=== PATIENT | male | born 1965 ===

== ENCOUNTER 2018-05-05 13:22 | Inpatient (IN) | payer OTHER ==
[2018-05-05] MEDS ORDERED: Clindamycin 600mg/50ml NS 600 MG/50 ML BAG IVPB STA (14:56)
[2018-05-05] MEDS ORDERED: Sodium Chloride 0.9% 1,000 ML IV STA (14:56)
--- NOTE | 2018-05-05 14:58 | ED PDOC ---
Lower Extremity Pain/Injury Time Seen by Provider: 05/05/18 14:31 Chief Complaint (Nursing): Lower Extremity Problem/Injury Chief Complaint (Provider): Foot pain History Per: Patient History/Exam Limitations: no limitations Onset/Duration Of Symptoms: Days (few weeks) Current Symptoms Are (Timing): Still Present Additional Complaint(s): Pt. sent from podiatry office of Dr. Salcedo. Pt. with leg swelling and cellulitis with big toe ulcer. Advised to get IV antibiotics. Pain with pain in the foot. No numbness, tingles, weakness, calf pain, fever. Not taking an tibiotics for it. Past Medical History Reviewed: Nursing Documentation, Vital Signs Vital Signs: Last Vital Signs Temp 98.4 F 05/05/18 13:29 Pulse 83 05/05/18 13:29 Resp 16 05/05/18 13:29 BP 158/80 H 05/05/18 13:29 Pulse Ox 99 05/05/18 13:29 - Medical History PMH: Diabetes, HTN, Hypercholesterolemia - Surgical History Surgical History: No Surg Hx - Family History Family History: States: Unknown Family Hx - Allergies Allergies/Adverse Reactions: Allergies Allergy/AdvReac Type Severity Reaction Status Date / Time No Known Allergies Allergy Verified 05/05/18 13:29 Review of Systems ROS Statement: Except As Marked, All Systems Reviewed And Found Negative Musculoskeletal: Positive for: Foot Pain Skin: Positive for: Lesions Physical Exam - Reviewed Nursing Documentation Reviewed: Yes Vital Signs Reviewed: Yes - Physical Exam Appears: Positive for: Non-toxic, No Acute Distress Head Exam: Positive for: ATRAUMATIC, NORMAL INSPECTION, NORMOCEPHALIC Skin: Positive for: Normal Color, Warm, DRY Neck: Positive for: Normal, Painless ROM Cardiovascular/Chest: Positive for: Regular Rate, Rhythm Respiratory: Positive for: CNT, Normal Breath Sounds Pulses-Dorsalis Pedis (L): 2+ Pulses-Dorsalis Pedis (R): 2+ Back: Positive for: Normal Inspection. Negative for: L CVA Tenderness, R CVA Tenderness Extremity: Positive for: Normal ROM, Tenderness (mild left foot with mild swelling and trace erythema; left big toe with ulcer). Negative for: Calf Tenderness Neurologic/Psych: Positive for: Alert, Oriented - ECG O2 Sat by Pulse Oximetry: 99 Pulse Ox Interpretation: Normal - Progress ED Course And Treament: 1532: Stable. Spoke with Dr. Matias. Will admit. Podiatry saw pt. and will admit. Branden jackson and karolina. Disposition - Clinical Impression Clinical Impression: Cellulitis, Osteomyelitis - Patient ED Disposition Is Patient to be Admitted: Yes Counseled Patient/Family Regarding: Diagnosis - Disposition Disposition Time: 15:36 Condition: FAIR - Pt Status Changed To: Hospital Disposition Of: Inpatient - Admit Certification Admit to Inpatient:: After my assessment, the patient will require hospitalization for at least two midnights. This is because of the severity of symptoms shown, intensity of services needed, and/or the medical risk in this p atient being treated as an outpatient. - POA Present On Arrival: Pressure Ulcer
[2018-05-05] MEDS ORDERED: Piperacillin/Tazobact 3.375 GM in Sodium Chloride 0.9% 100 ML IVPB STA (15:33)
[2018-05-05] MEDS ORDERED: Povidone Iodine Oint 10% Foilpak UD ONE (15:33)
[2018-05-05 15:39] LABS: VENOUS BLOOD GAS PCO2 60 mmHg (40-60); VENOUS BLOOD GAS PO2 11 mm/Hg (30-55); VENOUS BLOOD PH 7.33 (7.32-7.43)
[2018-05-05 15:40] LABS: BASO % 0.3 % (0.0-2.0); EOS # 0.1 K/uL (0.0-0.7); EOS % 0.8 % (0.0-4.0); HEMOGLOBIN 15.1 g/dL (12.0-18.0); LYMPH # 1.9 K/uL (1.0-4.3); LYMPH % 14.8 % (20.0-40.0); MEAN CELL VOLUME 88.7 fl (80.0-94.0); MEAN CORPUSCULAR HEMOGLOBIN 30.3 pg (27.0-31.0); MEAN CORPUSCULAR HGB CONC 34.2 g/dL (33.0-37.0); MEAN PLATELET VOLUME 7.4 fl (7.2-11.7); MONO # 0.8 K/uL (0.0-0.8); MONO % 6.7 % (0.0-10.0); NEUT # 9.7 K/uL (1.8-7.0); NEUT % 77.4 % (50.0-75.0); NRBC % 0.1 % (0.0-0.0); RBC 4.97 Mil/uL (4.40-5.90); RED CELL DISTRIBUTION WIDTH 12.9 % (11.5-14.5); WHITE BLOOD COUNT 12.6 K/uL (4.8-10.8)
--- NOTE | 2018-05-05 15:41 | CP.PCM.CON ---
History of Present Illness - History of Present Illness History of Present Illness: Podiatry consult note for attending Dr. Salcedo: A 53 y/o male patient with PMH of DM, HTN and hypercholestremia seen and evaluated at the ED for left great toe ulceration and redness. Patient was resting comfortably in bed and in NAD. Patient states that he started to develop an ulcer in his left great toe about 3 months ago. Patient states that he is following up in with Dr. Salcedo. He states that he received a course of Abx but the ulcer didn't heel. He states that last week his ulcer stated to get painful. he states that the pain is 4-5/10. He states that his left foot and heel started to get swollen and red. Patient states that a malodorous drainage started to get out of the ulcer. Patient states that he has tingling, numbness and burning sensations in both of his feet. Patient denies any other pedal complaint at this time. Patient denies any recent F/N/V/C or SOB recently. PMH: DM, HTN and hypercholestremia PSH: Right heel surgery. Allergies: NKDA. Social Hx: Denies smoking, EtOH use or Illicit drug use. Review of Systems - Review of Systems Review of Systems: As per HPI Past Patient History - Past Social History Smoking Status: Never Smoked - CARDIAC Hx Hypercholesterolemia: Yes Hx Hypertension: Yes - ENDOCRINE/METABOLIC Hx Diabetes Mellitus Type 2: Yes - PSYCHIATRIC Hx Substance Use: No - SURGICAL HISTORY Hx Orthopedic Surgery: Yes (left foot) - ANESTHESIA Hx Anesthesia: Yes Hx Anesthesia Reactions: No Meds Allergies/Adverse Reactions: Allergies Allergy/AdvReac Type Severity Reaction Status Date / Time No Known Allergies Allergy Verified 05/05/18 13:29 - Medications Medications: Current Medications Clindamycin Phosphate (Cleocin 600mg/50ml Ns) 600 mg in 50 mls @ 50 mls/hr IVPB STAT STA; Protocol Stop: 05/05/18 15:55 Sodium Chloride (Sodium Chloride 0.9%) 1,000 mls @ 1,000 mls/hr IV .Q1H STA Stop: 05/05/18 15:55 Physical Exam - Constitutional Appears: Well, Non-toxic, No Acute Distress - Head Exam Head Exam: ATRAUMATIC, NORMOCEPHALIC - Extremities Exam Additional comments: B/L LE exam: Vascular: DP/PT 2/4 B/L, Temp gradient warm to cool from proximal to distal on the right side and warm to warmer from proximal to distal on the left side, Cap refill < 3 sec to all digits. Moderate non pitting edema extending up to the the ankle on the left side. erythema extending to the left mid-foot. Neuro: protective sensation grossly diminished B/L. Derm: An ulcer noted to plantar medial aspect of the left Hallux. It measures approximately 0.6cm x 0.6cm x 0.5 cm with positive drainage, Positive malodor; erythema extending to the left mid-foot, Positive probe to bone, Positive tacking, Positive undermining. Edges are hyperkeratotic. Positive clinical signs of infection noted. Hyperkeratotic lesion noted in the plantar aspect of the left 5th met head MSK: Mild pain to palpation of the ulceration site. Mild pain on palpating the left ankle joint. Muscle power intact 5/5 in all groups. - Neurological Exam Neurological exam: Alert, Oriented x3 - Psychiatric Exam Psychiatric exam: Normal Affect, Normal Mood Results - Vital Signs Recent Vital Signs: Last Vital Signs Temp 98.4 F 05/05/18 13:29 Pulse 83 05/05/18 13:29 Resp 16 05/05/18 13:29 BP 158/80 H 05/05/18 13:29 Pulse Ox 99 05/05/18 15:01 - Labs Result Diagrams: 05/05/18 15:14 05/05/18 15:14 Assessment & Plan - Assessment and Plan (Free Text) Assessment: 53 y/o male patient seen and evaluated in the ED for Left Hallux infected ulcer, Cellulitis and osteomyelitis Plan: Patient seen and evaluated at ED. Plan discussed in details with attending Dr. Salcedo Interpreters number [id number] used for French translation. Charts, Labs and vitals reviewed; Afebrile, WBCs 12.6 L foot X-ray reviewed; Erosions noted in the medial cortex of the distal phalanx of the left hallux. Increased soft tissue shadow at the level of the left hallux. Soft tissue defect at the left hallux consistent with ulceration. Left foot ulcer was dressed with betadine and DSD Patient will be admitted by the primary team We will continue to perform local wound care Wound culture collected and sent to the lab. Bactroban ordered for daily dressing changes Podiatry to follow up the patient while in house - Date & Time Date: 05/05/18 Time: 15:10
[2018-05-05 15:43] LABS: INR 1.1; PROTHROMBIN TIME 12.4 Seconds (9.8-13.1)
[2018-05-05] MEDS ORDERED: Vancomycin 1 g Inj ONE (15:43)
[2018-05-05 15:46] LABS: PARTIAL THROMBOPLASTIN TIME 38.3 Seconds (25.6-37.1)
[2018-05-05 15:49] LABS: ALB/GLOB RATIO 0.9 (1.0-2.1); BLOOD UREA NITROGEN 18 mg/dl (9-20); CALCIUM 9.1 mg/dL (8.4-10.2); GFR NON-AFRICAN AMERICAN > 60
[2018-05-05 16:08] LABS: ALT/SGPT 27 U/L (21-72); AST/SGOT 28 U/L (17-59)
--- NOTE | 2018-05-05 16:15 | CP.PCM.HP ---
History of Present Illness - History of Present Illness History of Present Illness: 53 yo male patient with pmh of HTN and DM sent from primary podiatry office of Dr. Salcedo due to left leg swelling and cellulitis of the big toe. Patient reported he completed an antibiotics course 10 days ago w/o improvement. Yeste rday he went to PMD and advised to come to hospital. he reports moderate pain in the foot. Podiatry already evaluated the patient and dressing is noted to be clean and dry. No numbness, tingles, weakness, calf pain, fever. Not taking antibiotics or pain meds at this time PMD: Dr Salcedo PMH: HTN, DM, HLD PSH: R foot surgery FMH: Mom with DM Meds: see below NKDA SH: denies smoking, eoth or ilicit drugs use. Present on Admission - Present on Admission Any Indicators Present on Admission: No Review of Systems - Review of Systems All systems: reviewed and no additional remarkable complaints except (HPI) Past Patient History - Past Social History Smoking Status: Never Smoked - CARDIAC Hx Hypercholesterolemia: Yes Hx Hypertension: Yes - ENDOCRINE/METABOLIC Hx Diabetes Mellitus Type 2: Yes - PSYCHIATRIC Hx Substance Use: No - SURGICAL HISTORY Hx Orthopedic Surgery: Yes (left foot) - ANESTHESIA Hx Anesthesia: Yes Hx Anesthesia Reactions: No Meds Allergies/Adverse Reactions: Allergies Allergy/AdvReac Type Severity Reaction Status Date / Time No Known Allergies Allergy Verified 05/05/18 13:29 Physical Exam - Constitutional Appears: No Acute Distress - Head Exam Head Exam: NORMAL INSPECTION - Eye Exam Eye Exam: EOMI, PERRL - Respiratory Exam Respiratory Exam: Clear to Auscultation Bilateral - Cardiovascular Exam Cardiovascular Exam: REGULAR RHYTHM, +S1, +S2. absent: Tachycardia - GI/Abdominal Exam GI & Abdominal Exam: Normal Bowel Sounds. absent: Distended, Soft, Tenderness - Extremities Exam Extremities exam: Negative for: calf tenderness, pedal edema Additional comments: Dressing clean and dry. - Neurological Exam Neurological exam: Alert, Oriented x3 - Skin Skin Exam: Dry, Warm Results - Vital Signs Recent Vital Signs: Last Vital Signs Temp 98.4 F 05/05/18 13:29 Pulse 83 05/05/18 13:29 Resp 16 05/05/18 13:29 BP 158/80 H 05/05/18 13:29 Pulse Ox 99 05/05/18 15:36 - Labs Result Diagrams: 05/06/18 05:25 05/06/18 05:25 Labs: Laboratory Results - last 24 hr 05/05/18 05/05/18 05/05/18 15:14 15:14 15:14 WBC 12.6 H RBC 4.97 Hgb 15.1 Hct 44.0 MCV 88.7 MCH 30.3 MCHC 34.2 RDW 12.9 Plt Count 329 MPV 7.4 Neut % (Auto) 77.4 H Lymph % (Auto) 14.8 L Hart % (Auto) 6.7 Eos % (Auto) 0.8 Baso % (Auto) 0.3 Neut # (Auto) 9.7 H Lymph # (Auto) 1.9 Hart # (Auto) 0.8 Eos # (Auto) 0.1 Baso # (Auto) 0.0 PT 12.4 INR 1.1 APTT 38.3 H pO2 VBG pH VBG pCO2 VBG HCO3 VBG Total CO2 VBG O2 Sat (Calc) VBG Base Excess VBG Potassium Glucose Lactate FiO2 Sodium 140 Potassium 4.6 Chloride 104 Carbon Dioxide 30 Anion Gap 11 BUN 18 Creatinine 0.8 Est GFR ( Amer) > 60 Est GFR (Non-Af Amer) > 60 Random Glucose 262 H Calcium 9.1 Total Bilirubin 0.6 AST 28 ALT 27 Alkaline Phosphatase 95 Troponin I < 0.0120 Total Protein 8.7 H Albumin 4.0 Globulin 4.7 H Albumin/Globulin Ratio 0.9 L Venous Blood Potassium 05/05/18 15:36 WBC RBC Hgb Hct MCV MCH MCHC RDW Plt Count MPV Neut % (Auto) Lymph % (Auto) Hart % (Auto) Eos % (Auto) Baso % (Auto) Neut # (Auto) Lymph # (Auto) Hart # (Auto) Eos # (Auto) Baso # (Auto) PT INR APTT pO2 11 L VBG pH 7.33 VBG pCO2 60 VBG HCO3 25.7 VBG Total CO2 33.4 H VBG O2 Sat (Calc) 13.8 L VBG Base Excess 4.0 H VBG Potassium 4.0 Glucose 236 H Lactate 1.6 FiO2 21.0 Sodium 137.0 Potassium Chloride 101.0 Carbon Dioxide Anion Gap BUN Creatinine Est GFR ( Amer) Est GFR (Non-Af Amer) Random Glucose Calcium Total Bilirubin AST ALT Alkaline Phosphatase Troponin I Total Protein Albumin Globulin Albumin/Globulin Ratio Venous Blood Potassium 4.0 Assessment & Plan - Assessment and Plan (Free Text) Assessment: 53 y/o male patient with PMH of HTN and DM admitted for Left Hallux infected ulcer, Cellulitis r/o osteomyelitis. Plan: - afebrile, no leukocytosis - L foot X-ray: Erosions noted in the medial cortex of the distal phalanx of the left hallux. Increased soft tissue shadow at the level of the left hallux. Soft tissue defect at the left hallux consistent with ulceration. - ID consulted, recommendations appreciated - wound cx pending - continue with tomer and karolina IV - Podiatry on board for wound care - rest of plan as ordered Case seen and examined with Dr Matias.
[2018-05-05] MEDS ORDERED: Oxycodone/Acetaminophen 5/325 mg Tab PO PRN (16:17)
--- NOTE | 2018-05-05 16:51 | RAD ---
Date of service: 05/05/2018 PROCEDURE: Left Foot Radiographs. HISTORY: Unspecified foot pain COMPARISON: None. FINDINGS: BONES: Normal. No fracture. JOINTS: Hammertoe deformities identified. SOFT TISSUES: Soft tissue swelling 1st digit, air identified within the soft tissues adjacent to the distal phalanx. OTHER FINDINGS: None. IMPRESSION: Soft tissue swelling 1st digit. Ulcer identified on the medial aspect at the level of the distal phalanx. No adjacent underlying radiographic evidence of osteomyelitis.
[2018-05-05] MEDS: Mupirocin 2% Cream TOP SCH (19:30)
[2018-05-05] MEDS: Influenza Vaccine (5 YR UP)/PF 60 MCG/0.5 ML SYR IM ONE ×2 (22:20→22:33)
[2018-05-05] MEDS: Insulin Regular 100 units/ml SC SCH (22:30)
[2018-05-06] MEDS: Piperacillin/Tazobact 3.375 GM in Sodium Chloride 0.9% 100 ML IVPB SCH ×5 (00:22→23:00)
[2018-05-06 06:22] LABS: BASO % 0.4 % (0.0-2.0); EOS # 0.2 K/uL (0.0-0.7); HEMOGLOBIN 13.8 g/dL (12.0-18.0); LYMPH # 2.3 K/uL (1.0-4.3); LYMPH % 21.9 % (20.0-40.0); MEAN CELL VOLUME 89.1 fl (80.0-94.0); MEAN CORPUSCULAR HEMOGLOBIN 30.5 pg (27.0-31.0); MEAN CORPUSCULAR HGB CONC 34.2 g/dL (33.0-37.0); MEAN PLATELET VOLUME 7.4 fl (7.2-11.7); MONO # 0.9 K/uL (0.0-0.8); MONO % 9.2 % (0.0-10.0); NEUT # 6.9 K/uL (1.8-7.0); NEUT % 66.5 % (50.0-75.0); NRBC % 0.1 % (0.0-0.0); RBC 4.53 Mil/uL (4.40-5.90); RED CELL DISTRIBUTION WIDTH 12.6 % (11.5-14.5); WHITE BLOOD COUNT 10.3 K/uL (4.8-10.8)
--- NOTE | 2018-05-06 07:22 | CP.PCM.PN ---
Subjective - Date & Time of Evaluation Date of Evaluation: 05/06/18 Time of Evaluation: 08:49 - Subjective Subjective: Podiatry Progress note for attending Dr. Salcedo: A 53 y/o male patient seen and evaluated at the bedside for left great toe ulceration and redness. Patient was resting comfortably in bed and in NAD. Patient states that he still has tingling, numbness and burning sensations in both of his feet. Patient denies any pain in his left hallux at the ulcer site. Patient denies any other pedal complaint at this time. Patient denies any recent F/N/V/C or SOB recently. Objective - Vital Signs/Intake and Output Vital Signs (last 24 hours): Temp Pulse Resp BP Pulse Ox 97.9 F 80 20 129/71 98 05/06/18 00:15 05/06/18 00:15 05/06/18 00:15 05/06/18 00:15 05/06/18 00:15 - Medications Medications: Current Medications Enoxaparin Sodium (Lovenox) 40 mg SC DAILY [facility]MAN; Protocol HCTZ/Losartan Potassium (Hyzaar 12.5 Mg-50 Mg) 1 tab PO DAILY [facility]MAN Vancomycin HCl 1 gm/ Sodium (Chloride) 250 mls @ 166.667 mls/hr IVPB Q12 [facility]; Protocol Last Admin: 05/05/18 22:17 Dose: 166.667 mls/hr Piperacillin Sod/Tazobactam (Sod 3.375 gm/ Sodium Chloride) 100 mls @ 100 mls/hr IVPB Q6 [facility]; Protocol Last Admin: 05/06/18 05:11 Dose: 100 mls/hr Ibuprofen (Motrin Tab) 400 mg PO Q6H PRN PRN Reason: Pain, Mild (1-3) Insulin Human Regular (Humulin R) 0 units SC ACCU-CHECK [facility]MAN; Protocol Last Admin: 05/05/18 22:30 Dose: Not Given Mupirocin (Bactroban Cream) 1 applic TOP BID [facility] Last Admin: 05/05/18 19:30 Dose: 1 applic Oxycodone/Acetaminophen (Percocet 5/325 Mg Tab) 1 tab PO Q4 PRN PRN Reason: Pain, moderate (4-7) Stop: 05/08/18 16:18 Pneumococcal Polyvalent Vaccine (Pneumovax 23 Vaccine) 0.5 ml IM .ONCE ONE Stop: 05/06/18 09:01 - Labs Labs: 05/06/18 05:25 05/05/18 15:14 PT 12.4 Seconds (9.8-13.1) 05/05/18 15:14 INR 1.1 05/05/18 15:14 APTT 38.3 Seconds (25.6-37.1) H 05/05/18 15:14 - Constitutional Appears: Well, Non-toxic, No Acute Distress - Head Exam Head Exam: ATRAUMATIC, NORMOCEPHALIC - Extremities Exam Additional comments: B/L LE exam: Vascular: DP/PT 2/4 B/L, Temp gradient warm to cool from proximal to distal on the right side and warm to warm from proximal to distal on the left side, Cap refill < 3 sec to all digits. Moderate non pitting edema extending up to the the ankle on the left side. erythema extending to the left mid-foot. Neuro: protective sensation grossly diminished B/L. Derm: An ulcer noted to plantar medial aspect of the left Hallux. It measures approximately 0.6cm x 0.6cm x 0.5 cm with positive minimal purulent drainage, Positive malodor; erythema and swelling at the left hallux, Positive probe to bone, Positive tacking, Positive undermining. Edges are hyperkeratotic. Positive clinical signs of infection noted. Hyperkeratotic lesion noted in the plantar aspect of the left 5th met head MSK: Mild pain to palpation of the ulceration site. Mild pain on palpating the left ankle joint. Muscle power intact 5/5 in all groups. - Neurological Exam Neurological Exam: Alert, Awake, Oriented x3 - Psychiatric Exam Psychiatric exam: Normal Affect, Normal Mood Assessment and Plan - Assessment and Plan (Free Text) Assessment: 53 y/o male patient seen and evaluated at the bedside for Left Hallux infected ulcer, Cellulitis and possible osteomyelitis Plan: Patient seen and evaluated at the bedside with Dr. Salcedo. Plan discussed in details with attending Dr. Salcedo Charts, Labs and vitals reviewed; Afebrile, WBCs 10.3 L foot X-ray reviewed; Erosions noted in the medial cortex of the distal phalanx of the left hallux. Increased soft tissue shadow at the level of the left hallux. Soft tissue defect at the left hallux consistent with ulceration. Ordered MRI left foot Left foot ulcer was dressed with bactroban and DSD We will continue to perform local wound care Wound culture; Pending result. Podiatry to follow up the patient while in house
[2018-05-06 07:30] LABS: ALB/GLOB RATIO 0.9 (1.0-2.1); ALBUMIN 3.4 g/dL (3.5-5.0); ALT/SGPT 27 U/L (21-72); AST/SGOT 18 U/L (17-59); BLOOD UREA NITROGEN 13 mg/dl (9-20); CALCIUM 8.5 mg/dL (8.4-10.2); GFR NON-AFRICAN AMERICAN > 60
[2018-05-06] MEDS: Insulin Regular 100 units/ml SC SCH ×5 (07:51→22:35)
[2018-05-06] MEDS ORDERED: Pneumococcal 23-Valent Vaccine IM ONE (09:00)
--- NOTE | 2018-05-06 09:06 | CP.PCM.CON ---
History of Present Illness - History of Present Illness History of Present Illness: Infectious Disease Consultation Note- Asked to see this patient at the request of for left halux infection. 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 Patient reported he completed an antibiotics course 10 days ago w/o improvement. Patient explains that it developed as a small blister over the summer and it has progressively worsened and in the past few days he was having alot of swelling and redness and pain with some malodorus discharge as well. pt. has been seen by podiatry here and has had wound cx done and is on Iv antibiotics . I'm asked to help with antibiotic management. pt. denies any injury to the region. denies having any other h/o foot infections in the past. PMD: Dr Salcedo PMH: HTN, DM, HLD FMH: Mom with DM Meds: see below NKDA SH: denies smoking, eoth or ilicit drugs use. Review of Systems - Review of Systems Review of Systems: ROS- denies any fever or chills, denies any [place], denies any cough or sob, denies any chest pain, denies any nausea or vomiting, denies any abd. pain, denies any dysurea, denies any diarrhea left hallux ulcer with pain and redness and swelling in the left great toe and s urrounding foot ( but as per pt.swelling adn erythema much less today. Past Patient History - Past Medical History & Family History Past Medical History?: Yes - Past Social History Smoking Status: Never Smoked Alcohol: None Drugs: Denies - CARDIAC Hx Hypercholesterolemia: Yes Hx Hypertension: Yes - PULMONARY Hx Respiratory Disorders: No - NEUROLOGICAL Hx Neurological Disorder: No - RENAL Hx Chronic Kidney Disease: No - ENDOCRINE/METABOLIC Hx Diabetes Mellitus Type 2: Yes - HEMATOLOGICAL/ONCOLOGICAL Hx Blood Disorders: No - MUSCULOSKELETAL/RHEUMATOLOGICAL Hx Falls: No - GASTROINTESTINAL Hx Gastrointestinal Disorders: No - PSYCHIATRIC Hx Substance Use: No - SURGICAL HISTORY Hx Orthopedic Surgery: Yes (left foot) - ANESTHESIA Hx Anesthesia: Yes Hx Anesthesia Reactions: No Meds Allergies/Adverse Reactions: Allergies Allergy/AdvReac Type Severity Reaction Status Date / Time No Known Allergies Allergy Verified 05/05/18 13:29 - Medications Medications: Current Medications Enoxaparin Sodium (Lovenox) 40 mg SC DAILY [facility]; Protocol HCTZ/Losartan Potassium (Hyzaar 12.5 Mg-50 Mg) 1 tab PO DAILY [facility] Vancomycin HCl 1 gm/ Sodium (Chloride) 250 mls @ 166.667 mls/hr IVPB Q12 [facility]; Protocol Last Admin: 05/05/18 22:17 Dose: 166.667 mls/hr Piperacillin Sod/Tazobactam (Sod 3.375 gm/ Sodium Chloride) 100 mls @ 100 mls/hr IVPB Q6 [facility]; Protocol Last Admin: 05/06/18 05:11 Dose: 100 mls/hr Ibuprofen (Motrin Tab) 400 mg PO Q6H PRN PRN Reason: Pain, Mild (1-3) Insulin Human Regular (Humulin R) 0 units SC ACCU-CHECK [facility]; Protocol Last Admin: 05/05/18 22:30 Dose: Not Given Mupirocin (Bactroban Cream) 1 applic TOP BID [facility] Last Admin: 05/05/18 19:30 Dose: 1 applic Oxycodone/Acetaminophen (Percocet 5/325 Mg Tab) 1 tab PO Q4 PRN PRN Reason: Pain, moderate (4-7) Stop: 05/08/18 16:18 Physical Exam - Constitutional Appears: No Acute Distress - Head Exam Head Exam: ATRAUMATIC - Eye Exam Eye Exam: EOMI, PERRL - ENT Exam ENT Exam: Normal Oropharynx - Neck Exam Neck exam: Positive for: Full Rom - Respiratory Exam Respiratory Exam: Clear to Auscultation Bilateral, NORMAL BREATHING PATTERN - Cardiovascular Exam Cardiovascular Exam: RRR, +S1, +S2 - GI/Abdominal Exam GI & Abdominal Exam: Normal Bowel Sounds, Soft Additional comments: NT,ND - Extremities Exam Additional comments: left plantar hallux tip with round ulcer with minimal yellow disharge with surrounding erythema minimal edema the erythema on the surrounding region is almost resolved ( as per the lines outlined by podiatry ). has FROM of the hallux - Neurological Exam Neurological exam: Alert, Oriented x3 Results - Vital Signs Recent Vital Signs: Last Vital Signs Temp 98.1 F 05/06/18 08:29 Pulse 80 05/06/18 08:29 Resp 20 05/06/18 08:29 BP 135/77 05/06/18 08:29 Pulse Ox 99 05/06/18 08:29 - Labs Result Diagrams: 05/06/18 05:25 05/06/18 05:25 Labs: Laboratory Results - last 24 hr 05/05/18 05/05/18 05/05/18 15:14 15:14 15:14 WBC 12.6 H RBC 4.97 Hgb 15.1 Hct 44.0 MCV 88.7 MCH 30.3 MCHC 34.2 RDW 12.9 Plt Count 329 MPV 7.4 Neut % (Auto) 77.4 H Lymph % (Auto) 14.8 L Bacon % (Auto) 6.7 Eos % (Auto) 0.8 Baso % (Auto) 0.3 Neut # (Auto) 9.7 H Lymph # (Auto) 1.9 Bacon # (Auto) 0.8 Eos # (Auto) 0.1 Baso # (Auto) 0.0 PT 12.4 INR 1.1 APTT 38.3 H pO2 VBG pH VBG pCO2 VBG HCO3 VBG Total CO2 VBG O2 Sat (Calc) VBG Base Excess VBG Potassium Glucose Lactate FiO2 Sodium 140 Potassium 4.6 Chloride 104 Carbon Dioxide 30 Anion Gap 11 BUN 18 Creatinine 0.8 Est GFR ( Amer) > 60 Est GFR (Non-Af Amer) > 60 POC Glucose (mg/dL) Random Glucose 262 H Calcium 9.1 Total Bilirubin 0.6 AST 28 ALT 27 Alkaline Phosphatase 95 Troponin I < 0.0120 Total Protein 8.7 H Albumin 4.0 Globulin 4.7 H Albumin/Globulin Ratio 0.9 L Venous Blood Potassium 05/05/18 05/05/18 05/05/18 15:36 16:58 21:16 WBC RBC Hgb Hct MCV MCH MCHC RDW Plt Count MPV Neut % (Auto) Lymph % (Auto) Bacon % (Auto) Eos % (Auto) Baso % (Auto) Neut # (Auto) Lymph # (Auto) Bacon # (Auto) Eos # (Auto) Baso # (Auto) PT INR APTT pO2 11 L VBG pH 7.33 VBG pCO2 60 VBG HCO3 25.7 VBG Total CO2 33.4 H VBG O2 Sat (Calc) 13.8 L VBG Base Excess 4.0 H VBG Potassium 4.0 Glucose 236 H Lactate 1.6 FiO2 21.0 Sodium 137.0 Potassium Chloride 101.0 Carbon Dioxide Anion Gap BUN Creatinine Est GFR ( Amer) Est GFR (Non-Af Amer) POC Glucose (mg/dL) 215 H 161 H Random Glucose Calcium Total Bilirubin AST ALT Alkaline Phosphatase Troponin I Total Protein Albumin Globulin Albumin/Globulin Ratio Venous Blood Potassium 4.0 05/06/18 05/06/18 05/06/18 05:25 05:25 06:30 WBC 10.3 RBC 4.53 Hgb 13.8 Hct 40.3 MCV 89.1 MCH 30.5 MCHC 34.2 RDW 12.6 Plt Count 325 MPV 7.4 Neut % (Auto) 66.5 Lymph % (Auto) 21.9 Bacon % (Auto) 9.2 Eos % (Auto) 2.0 Baso % (Auto) 0.4 Neut # (Auto) 6.9 Lymph # (Auto) 2.3 Bacon # (Auto) 0.9 H Eos # (Auto) 0.2 Baso # (Auto) 0.0 PT INR APTT pO2 VBG pH VBG pCO2 VBG HCO3 VBG Total CO2 VBG O2 Sat (Calc) VBG Base Excess VBG Potassium Glucose Lactate FiO2 Sodium 141 Potassium 4.3 Chloride 108 H Carbon Dioxide 30 Anion Gap 7 L BUN 13 Creatinine 0.8 Est GFR ( Amer) > 60 Est GFR (Non-Af Amer) > 60 POC Glucose (mg/dL) 136 H Random Glucose 132 H Calcium 8.5 Total Bilirubin 0.5 AST 18 ALT 27 Alkaline Phosphatase 78 Troponin I Total Protein 7.4 Albumin 3.4 L Globulin 3.9 Albumin/Globulin Ratio 0.9 L Venous Blood Potassium Laboratory Results - last 72 hr 05/05/18 05/05/18 05/05/18 15:14 15:14 15:14 WBC 12.6 H RBC 4.97 Hgb 15.1 Hct 44.0 MCV 88.7 MCH 30.3 MCHC 34.2 RDW 12.9 Plt Count 329 MPV 7.4 Neut % (Auto) 77.4 H Lymph % (Auto) 14.8 L Bacon % (Auto) 6.7 Eos % (Auto) 0.8 Baso % (Auto) 0.3 Neut # (Auto) 9.7 H Lymph # (Auto) 1.9 Bacon # (Auto) 0.8 Eos # (Auto) 0.1 Baso # (Auto) 0.0 ESR PT 12.4 INR 1.1 APTT 38.3 H pO2 VBG pH VBG pCO2 VBG HCO3 VBG Total CO2 VBG O2 Sat (Calc) VBG Base Excess VBG Potassium Glucose Lactate FiO2 Sodium 140 Potassium 4.6 Chloride 104 Carbon Dioxide 30 Anion Gap 11 BUN 18 Creatinine 0.8 Est GFR ( Amer) > 60 Est GFR (Non-Af Amer) > 60 POC Glucose (mg/dL) Random Glucose 262 H Calcium 9.1 Total Bilirubin 0.6 AST 28 ALT 27 Alkaline Phosphatase 95 Troponin I < 0.0120 Total Protein 8.7 H Albumin 4.0 Globulin 4.7 H Albumin/Globulin Ratio 0.9 L Venous Blood Potassium 05/05/18 05/05/18 05/05/18 15:36 16:58 21:16 WBC RBC Hgb Hct MCV MCH MCHC RDW Plt Count MPV Neut % (Auto) Lymph % (Auto) Bacon % (Auto) Eos % (Auto) Baso % (Auto) Neut # (Auto) Lymph # (Auto) Bacon # (Auto) Eos # (Auto) Baso # (Auto) ESR PT INR APTT pO2 11 L VBG pH 7.33 VBG pCO2 60 VBG HCO3 25.7 VBG Total CO2 33.4 H VBG O2 Sat (Calc) 13.8 L VBG Base Excess 4.0 H VBG Potassium 4.0 Glucose 236 H Lactate 1.6 FiO2 21.0 Sodium 137.0 Potassium Chloride 101.0 Carbon Dioxide Anion Gap BUN Creatinine Est GFR ( Amer) Est GFR (Non-Af Amer) POC Glucose (mg/dL) 215 H 161 H Random Glucose Calcium Total Bilirubin AST ALT Alkaline Phosphatase Troponin I Total Protein Albumin Globulin Albumin/Globulin Ratio Venous Blood Potassium 4.0 05/06/18 05/06/18 05/06/18 05:25 05:25 06:30 WBC 10.3 RBC 4.53 Hgb 13.8 Hct 40.3 MCV 89.1 MCH 30.5 MCHC 34.2 RDW 12.6 Plt Count 325 MPV 7.4 Neut % (Auto) 66.5 Lymph % (Auto) 21.9 Bacon % (Auto) 9.2 Eos % (Auto) 2.0 Baso % (Auto) 0.4 Neut # (Auto) 6.9 Lymph # (Auto) 2.3 Bacon # (Auto) 0.9 H Eos # (Auto) 0.2 Baso # (Auto) 0.0 ESR PT INR APTT pO2 VBG pH VBG pCO2 VBG HCO3 VBG Total CO2 VBG O2 Sat (Calc) VBG Base Excess VBG Potassium Glucose Lactate FiO2 Sodium 141 Potassium 4.3 Chloride 108 H Carbon Dioxide 30 Anion Gap 7 L BUN 13 Creatinine 0.8 Est GFR ( Amer) > 60 Est GFR (Non-Af Amer) > 60 POC Glucose (mg/dL) 136 H Random Glucose 132 H Calcium 8.5 Total Bilirubin 0.5 AST 18 ALT 27 Alkaline Phosphatase 78 Troponin I Total Protein 7.4 Albumin 3.4 L Globulin 3.9 Albumin/Globulin Ratio 0.9 L Venous Blood Potassium 05/06/18 05/06/18 10:48 11:24 WBC RBC Hgb Hct MCV MCH MCHC RDW Plt Count MPV Neut % (Auto) Lymph % (Auto) Bacon % (Auto) Eos % (Auto) Baso % (Auto) Neut # (Auto) Lymph # (Auto) Bacon # (Auto) Eos # (Auto) Baso # (Auto) ESR 48 H PT INR APTT pO2 VBG pH VBG pCO2 VBG HCO3 VBG Total CO2 VBG O2 Sat (Calc) VBG Base Excess VBG Potassium Glucose Lactate FiO2 Sodium Potassium Chloride Carbon Dioxide Anion Gap BUN Creatinine Est GFR ( Amer) Est GFR (Non-Af Amer) POC Glucose (mg/dL) 259 H Random Glucose Calcium Total Bilirubin AST ALT Alkaline Phosphatase Troponin I Total Protein Albumin Globulin Albumin/Globulin Ratio Venous Blood Potassium Microbiology 05/05/18 15:32 Foot - Left Gram Stain - Final Accession No. 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 HISTORY: Unspecified foot pain COMPARISON: None. FINDINGS: BONES: Normal. No fracture. JOINTS: Hammertoe deformities identified. SOFT TISSUES: Soft tissue swelling 1st digit, air identified within the soft tissues adjacent to the distal phalanx. OTHER FINDINGS: None. IMPRESSION: Soft tissue swelling 1st digit. Ulcer identified on the medial aspect at the level of the distal phalanx. No adjacent underlying radiographic evidence of osteomyelitis. Assessment & Plan (1) Cellulitis Status: Acute - Assessment and Plan (Free Text) Assessment: A/P- 53 year old male with DM Ii, HTN admitted withleft great toe tip nonhealing/infected ulcer. afebrile minimal leukocytosis has resolved. wound cx- pending foot xray report noted. plan- await Id and sensitivity of the wound cx. advise to check MRI r/o OM since has slightly elevated ESr. advise to continue with current abx zosyn and vanco pending further cx results. keep vanco trough 10-15. all labs and imaging and notes reviewed. Thank you for allowing me to take part in the care of this patient
[2018-05-06] MEDS: Mupirocin 2% Cream TOP SCH ×2 (10:50→18:22)
[2018-05-06] MEDS: Enoxaparin 40 mg Syringe SC SCH (10:52)
[2018-05-06] MEDS: HCTZ/Losartan 12.5/50 Tab PO SCH (10:56)
[2018-05-06 13:07] VITALS: BMI 22.7
[2018-05-07] MEDS: Piperacillin/Tazobact 3.375 GM in Sodium Chloride 0.9% 100 ML IVPB SCH ×4 (04:30→23:00)
[2018-05-07 06:08] LABS: HEMOGLOBIN 14.4 g/dL (12.0-18.0); MEAN CELL VOLUME 88.9 fl (80.0-94.0); MEAN CORPUSCULAR HEMOGLOBIN 29.8 pg (27.0-31.0); MEAN CORPUSCULAR HGB CONC 33.5 g/dL (33.0-37.0); RBC 4.83 Mil/uL (4.40-5.90); RED CELL DISTRIBUTION WIDTH 12.6 % (11.5-14.5); WHITE BLOOD COUNT 9.9 K/uL (4.8-10.8)
[2018-05-07 06:18] LABS: BLOOD UREA NITROGEN 15 mg/dl (9-20); CALCIUM 8.7 mg/dL (8.4-10.2); GFR NON-AFRICAN AMERICAN > 60
[2018-05-07] MEDS: Insulin Regular 100 units/ml SC SCH ×4 (06:27→23:00)
[2018-05-07] MEDS: HCTZ/Losartan 12.5/50 Tab PO SCH (08:30)
[2018-05-07] MEDS: Mupirocin 2% Cream TOP SCH ×2 (08:31→16:55)
[2018-05-07] MEDS: Enoxaparin 40 mg Syringe SC SCH (08:31)
--- NOTE | 2018-05-07 09:33 | CP.PCM.PN ---
Subjective - Date & Time of Evaluation Date of Evaluation: 05/07/18 Time of Evaluation: 09:33 - Subjective Subjective: Podiatry Progress Note for Dr. Salcedo: 53 yo male patient seen and evaluated at the bedside for left hallux ulceration and erythema. Patient is AAOx3 and in NAD. He denies any pain to LLE. He denies any other acute events overnight. Denies N/V/F. Objective - Vital Signs/Intake and Output Vital Signs (last 24 hours): Temp Pulse Resp BP Pulse Ox 97.4 F L 66 20 138/79 99 05/07/18 08:15 05/07/18 08:15 05/07/18 08:15 05/07/18 08:15 05/07/18 08:15 - Medications Medications: Current Medications Enoxaparin Sodium (Lovenox) 40 mg SC DAILY [facility]; Protocol Last Admin: 05/07/18 08:31 Dose: 40 mg HCTZ/Losartan Potassium (Hyzaar 12.5 Mg-50 Mg) 1 tab PO DAILY [facility] Last Admin: 05/07/18 08:30 Dose: 1 tab Vancomycin HCl 1 gm/ Sodium (Chloride) 250 mls @ 166.667 mls/hr IVPB Q12 [facility]; Protocol Last Admin: 05/07/18 08:25 Dose: 166.667 mls/hr Piperacillin Sod/Tazobactam (Sod 3.375 gm/ Sodium Chloride) 100 mls @ 100 mls/hr IVPB Q6 [facility]; Protocol Last Admin: 05/07/18 04:30 Dose: 100 mls/hr Ibuprofen (Motrin Tab) 400 mg PO Q6H PRN PRN Reason: Pain, Mild (1-3) Insulin Human Regular (Humulin R) 0 units SC ACCU-CHECK [facility]; Protocol Last Admin: 05/07/18 06:27 Dose: Not Given Mupirocin (Bactroban Cream) 1 applic TOP BID [facility] Last Admin: 05/07/18 08:31 Dose: 1 applic Oxycodone/Acetaminophen (Percocet 5/325 Mg Tab) 1 tab PO Q4 PRN PRN Reason: Pain, moderate (4-7) Stop: 05/08/18 16:18 - Labs Labs: 05/07/18 05:15 05/07/18 05:15 PT 12.4 Seconds (9.8-13.1) 05/05/18 15:14 INR 1.1 05/05/18 15:14 APTT 38.3 Seconds (25.6-37.1) H 05/05/18 15:14 - Constitutional Appears: Well, Non-toxic, No Acute Distress - Head Exam Head Exam: ATRAUMATIC, NORMOCEPHALIC - Extremities Exam Additional comments: B/L LE exam: Vascular: DP/PT 2/4 B/L, Temp gradient warm to cool from proximal to distal on the right side and warm to warm from proximal to distal on the left side, Cap refill < 3 sec to all digits. +1 edema to LLE and +2 edema to hallux. Ortho: Mild tenderness to palpation of hallux ulceration site. MMT 5/5 to all compartments Neuro: Gross sensation intact, protective sensation diminished Derm: An ulcer noted to plantar medial aspect of the left hallux, measuring approximately, .6cm x.6 cm x .5cm with no purulence, no malodor. Positive probe to bone, positive tracking. Hyperkeratotic rim appreciated. - Neurological Exam Neurological Exam: Alert, Awake, Oriented x3 - Psychiatric Exam Psychiatric exam: Normal Affect, Normal Mood Assessment and Plan - Assessment and Plan (Free Text) Assessment: 53 y/o male patient seen and evaluated at the bedside for L hallux ulcer Plan: Patient seen and evaluated Patient plan discussed in detail with Dr. Salcedo. Afebrile, WBC 9.9 Local wound care: Left foot ulcer dressed with bactroban and DSD L foot X-ray reviewed; Erosions noted in the medial cortex of the distal phalanx of the left hallux. Increased soft tissue shadow at the level of the left hallux. MRI of LLE; results pending Wound culture; results pending Podiatry will continue to follow
--- NOTE | 2018-05-07 09:57 | CP.PCM.PN ---
Subjective - Date & Time of Evaluation Date of Evaluation: 05/07/18 Time of Evaluation: 09:57 - Subjective Subjective: Patient seen and examined with Dr Polly mills bedside Patient reports feeling better, no pain at this time, dressing recently changed by Podiatry Afebrile, VSS Objective - Vital Signs/Intake and Output Vital Signs (last 24 hours): Temp Pulse Resp BP Pulse Ox 97.4 F L 66 20 138/79 99 05/07/18 08:15 05/07/18 08:15 05/07/18 08:15 05/07/18 08:15 05/07/18 08:15 - Medications Medications: Current Medications Enoxaparin Sodium (Lovenox) 40 mg SC DAILY [facility]; Protocol Last Admin: 05/07/18 08:31 Dose: 40 mg HCTZ/Losartan Potassium (Hyzaar 12.5 Mg-50 Mg) 1 tab PO DAILY [facility] Last Admin: 05/07/18 08:30 Dose: 1 tab Vancomycin HCl 1 gm/ Sodium (Chloride) 250 mls @ 166.667 mls/hr IVPB Q12 [facility]; Protocol Last Admin: 05/07/18 08:25 Dose: 166.667 mls/hr Piperacillin Sod/Tazobactam (Sod 3.375 gm/ Sodium Chloride) 100 mls @ 100 mls/hr IVPB Q6 [facility]; Protocol Last Admin: 05/07/18 04:30 Dose: 100 mls/hr Ibuprofen (Motrin Tab) 400 mg PO Q6H PRN PRN Reason: Pain, Mild (1-3) Insulin Human Regular (Humulin R) 0 units SC ACCU-CHECK [facility]; Protocol Last Admin: 05/07/18 06:27 Dose: Not Given Mupirocin (Bactroban Cream) 1 applic TOP BID [facility] Last Admin: 05/07/18 08:31 Dose: 1 applic Oxycodone/Acetaminophen (Percocet 5/325 Mg Tab) 1 tab PO Q4 PRN PRN Reason: Pain, moderate (4-7) Stop: 05/08/18 16:18 - Labs Labs: 05/07/18 05:15 05/07/18 05:15 PT 12.4 Seconds (9.8-13.1) 05/05/18 15:14 INR 1.1 05/05/18 15:14 APTT 38.3 Seconds (25.6-37.1) H 05/05/18 15:14 - Constitutional Appears: No Acute Distress - Head Exam Head Exam: NORMAL INSPECTION - Eye Exam Eye Exam: EOMI, PERRL - Respiratory Exam Respiratory Exam: Clear to Ausculation Bilateral - Cardiovascular Exam Cardiovascular Exam: REGULAR RHYTHM, +S1, +S2. absent: Tachycardia - GI/Abdominal Exam GI & Abdominal Exam: Soft. absent: Distended, Tenderness - Extremities Exam Extremities Exam: absent: Calf Tenderness, Pedal Edema Additional comments: Dressing clean, dry - Neurological Exam Neurological Exam: Alert, Oriented x3 - Skin Skin Exam: Dry, Warm Assessment and Plan - Assessment and Plan (Free Text) Assessment: 53 y/o male patient with PMH of HTN and DM admitted for Left Hallux infected ulcer, Cellulitis r/o osteomyelitis. Plan: - afebrile, no leukocytosis - L foot X-ray: Erosions noted in the medial cortex of the distal phalanx of the left hallux. Increased soft tissue shadow at the level of the left hallux. Soft tissue defect at the left hallux consistent with ulceration. - MRI official report pending - ID consulted, recommendations appreciated - wound cx pending - continue with vanco and karolina IV - Podiatry on board for wound care - rest of plan as ordered
--- NOTE | 2018-05-07 09:57 | CP.PCM.PN ---
Subjective - Date & Time of Evaluation Date of Evaluation: 05/06/18 Time of Evaluation: 08:25 - Subjective Subjective: Patient seen and examined with Dr Matias during rounds Afebrile, no acute overnight events, less foot pain. Denies chills, nausea, vomiting, CP or sob. Objective - Vital Signs/Intake and Output Vital Signs (last 24 hours): Temp Pulse Resp BP Pulse Ox 97.4 F L 66 20 138/79 99 05/07/18 08:15 05/07/18 08:15 05/07/18 08:15 05/07/18 08:15 05/07/18 08:15 - Medications Medications: Current Medications Enoxaparin Sodium (Lovenox) 40 mg SC DAILY [facility]; Protocol Last Admin: 05/07/18 08:31 Dose: 40 mg HCTZ/Losartan Potassium (Hyzaar 12.5 Mg-50 Mg) 1 tab PO DAILY [facility] Last Admin: 05/07/18 08:30 Dose: 1 tab Vancomycin HCl 1 gm/ Sodium (Ch[facility]) 250 mls @ 166.667 mls/hr IVPB Q12 [facility]; Protocol Last Admin: 05/07/18 08:25 Dose: 166.667 mls/hr Piperacillin Sod/Tazobactam (Sod 3.375 gm/ Sodium Chloride) 100 mls @ 100 mls/hr IVPB Q6 [facility]; Protocol Last Admin: 05/07/18 04:30 Dose: 100 mls/hr Ibuprofen (Motrin Tab) 400 mg PO Q6H PRN PRN Reason: Pain, Mild (1-3) Insulin Human Regular (Humulin R) 0 units SC ACCU-CHECK [facility]; Protocol Last Admin: 05/07/18 06:27 Dose: Not Given Mupirocin (Bactroban Cream) 1 applic TOP BID [facility] Last Admin: 05/07/18 08:31 Dose: 1 applic Oxycodone/Acetaminophen (Percocet 5/325 Mg Tab) 1 tab PO Q4 PRN PRN Reason: Pain, moderate (4-7) Stop: 05/08/18 16:18 - Labs Labs: 05/07/18 05:15 05/07/18 05:15 PT 12.4 Seconds (9.8-13.1) 05/05/18 15:14 INR 1.1 05/05/18 15:14 APTT 38.3 Seconds (25.6-37.1) H 05/05/18 15:14 - Constitutional Appears: No Acute Distress - Head Exam Head Exam: NORMAL INSPECTION - Respiratory Exam Respiratory Exam: Clear to Ausculation Bilateral - Cardiovascular Exam Cardiovascular Exam: REGULAR RHYTHM. absent: Tachycardia - GI/Abdominal Exam GI & Abdominal Exam: Soft. absent: Distended, Tenderness - Extremities Exam Extremities Exam: absent: Calf Tenderness Additional comments: Dressing clean and dry, recently changed by podiatry. Assessment and Plan - Assessment and Plan (Free Text) Assessment: 53 y/o male patient with PMH of HTN and DM admitted for Left Hallux infected ulcer, Cellulitis r/o osteomyelitis. Plan: - afebrile, no leukocytosis - ESR and C RP elevated - L foot X-ray: Erosions noted in the medial cortex of the distal phalanx of the left hallux. Increased soft tissue shadow at the level of the left hallux. Soft tissue defect at the left hallux consistent with ulceration. - For foot MRI, f/u - ID consulted, recommendations appreciated - wound cx pending - continue with tomer and karolina IV - Podiatry on board for wound care - rest of plan as ordered
[2018-05-07] MEDS ORDERED: Lidocaine 1% 5ml Abboject ONE (12:03)
--- NOTE | 2018-05-07 12:49 | PCM.SURG1 ---
Surgeon's Initial Post Op Note - Surgeon's Notes Surgeon: Davie Ackerman MD Pulverizer Mill Operator: NONE Type of Anesthesia: Local Pre-Operative Diagnosis: Poor venous access Operative Findings: US showed patent right basilic vein Post-Operative Diagnosis: Poor venous access Operation Performed: Single lumen picc right arm, 35 CM. Tip in SVC. Specimen/Specimens Removed: NONE Estimated Blood Loss: EBL {In ML}: 2 Blood Products Given: N/A Drains Used: No Drains Post-Op Condition: Fair Date of Surgery/Procedure: 05/07/18 Time of Surgery/Procedure: 12:45
--- NOTE | 2018-05-07 13:01 | VASCULAR ---
PROCEDURE: Date of procedure: 05/07/2018 Procedure: 1. Placement of a right arm PICC with ultrasound and fluoroscopic guidance, CPT 95180 2. PICC tip confirmation with spot radiograph and is in the superior vena cava Medications: 1 percent lidocaine Total Fluoro time: 5.2 Seconds Radiation: 0.34 MGy EBL: 2 cc HISTORY: Infection requiring long-term IV antibiotics TECHNIQUE: Following informed consent and procedure time-out, the patient was placed supine on the interventional table and the right arm prepped and draped in the usual sterile fashion. Ultrasound showed a patent and compressible right basilic vein. After the skin was anesthetized with lidocaine, the basilic vein was accessed with micro micropuncture technique using ultrasound guidance. A guidewire was then advanced under fluoroscopic guidance into the superior vena cava. An image documenting ultrasound guidance for vascular access was permanently saved. The length of the single-lumen 4 Spanish PICC was trimmed to 35 centimeters and advanced through a peel-away sheath. The PICC was position with tip of PICC confirm a spot radiograph the superior vena cava. The PICC was secured to the patient's skin. The PICC was flushed. A biopatch and sterile dressing was applied. IMPRESSION: Placement of a single-lumen 4 Spanish PICC trimmed to 35 centimeters via right basilic vein. The tip of the PICC is confirmed with spot radiograph and is in the superior vena cava.
--- NOTE | 2018-05-07 13:43 | MRI ---
MRI left foot HISTORY: Ulcer. Evaluate for osteomyelitis. COMPARISON: None available. TECHNIQUE: Multi-echo multiplanar sequences were performed through the left forefoot without the use of intravenous contrast. FINDINGS: Ulceration noted at the level of the 1st distal phalanx. 1 centimeter heterogeneous collection at the site of the ulceration extending to the bone which may represent a phlegmon and/or abscess collection. Clinical correlation. Prominent signal abnormality seen within the 1st distal phalanx with decreased T1 signal and increased STIR signal consistent with an acute osteomyelitis. Mild nonspecific reactive edema seen at the head of the 1st proximal phalanx, nonspecific; however, some developing and or early acute osteomyelitic changes cannot entirely be excluded. Clinical correlation. Some fraying with increased signal seen at the level of the Lisfranc ligament which may represent a strain and or partial tearing. Clinical correlation. Mild nonspecific reactive edema seen within the middle and lateral cuneiform bones as well as the proximal aspect of the navicular bone. Clinical correlation. Signal abnormality seen at the dorsal base of the 2nd metatarsal bone with focal decreased T1 signal and increased STIR signal measuring approximately 7 millimeters suggestive for prominent osteochondral change. Clinical correlation. Degenerative changes noted at the dorsal aspect of the talonavicular joint space. Small localized fluid collections are seen related to the dorsum of the metatarsophalangeal articulations at the 1st and 2nd toes under each related extensor tendon which may represent some focalized bursitis. Clinical correlation. Extensive deep tissue edema of the foot. Impression: 1. Ulceration noted at the level of the 1st distal phalanx. 1 centimeter heterogeneous collection at the site of the ulceration extending to the bone which may represent a phlegmon and/or abscess collection. Clinical correlation. 2. Prominent signal abnormality seen within the 1st distal phalanx with decreased T1 signal and increased STIR signal consistent with an acute osteomyelitis. 3. Mild nonspecific reactive edema seen at the head of the 1st proximal phalanx, nonspecific; however, some developing and or early acute osteomyelitic changes cannot entirely be excluded. Clinical correlation. 4. Some fraying with increased signal seen at the level of the Lisfranc ligament which may represent a strain and or partial tearing. Clinical correlation. 5. Mild nonspecific reactive edema seen within the middle and lateral cuneiform bones as well as the proximal aspect of the navicular bone. Clinical correlation. 6. Signal abnormality seen at the dorsal base of the 2nd metatarsal bone with focal decreased T1 signal and increased STIR signal measuring approximately 7 millimeters suggestive for prominent osteochondral change. Clinical correlation. 7. Degenerative changes noted at the dorsal aspect of the talonavicular joint space. 8. Small localized fluid collections are seen related to the dorsum of the metatarsophalangeal articulations at the 1st and 2nd toes under each related extensor tendon which may represent some focalized bursitis. Clinical correlation. 9. Extensive deep tissue edema of the foot. These findings were preliminarily reported at 7:06 p.m. on 05/06/[address] Iam Rivera from [facility] rad.
[2018-05-07] MEDS: Pantoprazole 40 mg EC Tab PO SCH (14:57)
[2018-05-08] MEDS: Piperacillin/Tazobact 3.375 GM in Sodium Chloride 0.9% 100 ML IVPB SCH ×3 (04:02→16:59)
[2018-05-08 06:21] LABS: HEMOGLOBIN 14.5 g/dL (12.0-18.0); MEAN CELL VOLUME 88.3 fl (80.0-94.0); MEAN CORPUSCULAR HEMOGLOBIN 30.4 pg (27.0-31.0); MEAN CORPUSCULAR HGB CONC 34.4 g/dL (33.0-37.0); RBC 4.76 Mil/uL (4.40-5.90); RED CELL DISTRIBUTION WIDTH 12.5 % (11.5-14.5); WHITE BLOOD COUNT 9.6 K/uL (4.8-10.8)
[2018-05-08 06:28] LABS: BLOOD UREA NITROGEN 16 mg/dl (9-20); GFR NON-AFRICAN AMERICAN > 60
--- NOTE | 2018-05-08 07:16 | CP.PCM.PN ---
Subjective - Date & Time of Evaluation Date of Evaluation: 05/08/18 Time of Evaluation: 07:16 - Subjective Subjective: Podiatry Progress Note for Dr. Salcedo: 53 yo male patient seen and evaluated at the bedside, with Dr. Salcedo, for left hallux ulceration and erythema. Patient is resting in bed comfortably and in NAD. Patient denies pain to L hallux. Patient continues to weightbear as tolerated to LLE. Denies N/V/F. Objective - Vital Signs/Intake and Output Vital Signs (last 24 hours): Temp Pulse Resp BP Pulse Ox 97.6 F 63 20 121/71 99 05/08/18 00:39 05/08/18 00:39 05/08/18 00:39 05/08/18 00:39 05/08/18 00:39 - Medications Medications: Current Medications Enoxaparin Sodium (Lovenox) 40 mg SC DAILY [facility]; Protocol Last Admin: 05/07/18 08:31 Dose: 40 mg HCTZ/Losartan Potassium (Hyzaar 12.5 Mg-50 Mg) 1 tab PO DAILY [facility] Last Admin: 05/07/18 08:30 Dose: 1 tab Vancomycin HCl 1 gm/ Sodium (Chloride) 250 mls @ 166.667 mls/hr IVPB Q12 [facility]; Protocol Last Admin: 05/07/18 21:31 Dose: 166.667 mls/hr Piperacillin Sod/Tazobactam (Sod 3.375 gm/ Sodium Chloride) 100 mls @ 100 ml s/hr IVPB Q6 [facility]; Protocol Last Admin: 05/08/18 04:02 Dose: 100 mls/hr Ibuprofen (Motrin Tab) 400 mg PO Q6H PRN PRN Reason: Pain, Mild (1-3) Insulin Human Regular (Humulin R) 0 units SC ACCU-CHECK [facility]; Protocol Last Admin: 05/07/18 23:00 Dose: Not Given Mupirocin (Bactroban Cream) 1 applic TOP BID [facility] Last Admin: 05/07/18 16:55 Dose: 1 applic Oxycodone/Acetaminophen (Percocet 5/325 Mg Tab) 1 tab PO Q4 PRN PRN Reason: Pain, moderate (4-7) Stop: 05/08/18 16:18 Pantoprazole Sodium (Protonix Ec Tab) 40 mg PO DAILY [facility] Last Admin: 05/07/18 14:57 Dose: 40 mg - Labs Labs: 05/08/18 05:50 05/08/18 05:50 PT 12.4 Seconds (9.8-13.1) 05/05/18 15:14 INR 1.1 05/05/18 15:14 APTT 38.3 Seconds (25.6-37.1) H 05/05/18 15:14 - Constitutional Appears: Well, Non-toxic, No Acute Distress - Head Exam Head Exam: ATRAUMATIC, NORMOCEPHALIC - Extremities Exam Additional comments: B/L LE exam: Vascular: DP/PT 2/4 B/L, Temp gradient warm to cool from proximal to distal on the right side and warm to warm from proximal to distal on the left side, Cap refill < 3 sec to all digits. +1 edema to LLE and +2 edema to hallux. Ortho: Mild tenderness to palpation of hallux ulceration site. MMT 5/5 to all compartments Neuro: Gross sensation intact, protective sensation diminished Derm: An ulcer noted to plantar medial aspect of the left hallux, measuring approximately, .6cm x.6 cm x .5cm with no purulence, no malodor. Positive probe to bone, positive tracking. Hyperkeratotic rim appreciated. - Neurological Exam Neurological Exam: Alert, Awake, Oriented x3 - Psychiatric Exam Psychiatric exam: Normal Affect, Normal Mood Assessment and Plan - Assessment and Plan (Free Text) Assessment: 53 y/o male patient seen and evaluated at the bedside for L hallux ulcer Plan: Patient seen and evaluated with Dr. Salcedo Afebrile, WBC 9.6 Local wound care: Left foot ulcer dressed with bactroban and DSD L foot X-ray reviewed; Erosions noted in the medial cortex of the distal phalanx of the left hallux. Increased soft tissue shadow at the level of the left hallux. MRI of LLE; prominent signal abnormality seen within 1st distal phalanx consistent with acute OM Wound culture L foot: Staph aureus, strept mitis ID reccs appreciated Podiatry will continue to follow
--- NOTE | 2018-05-08 08:58 | CP.PCM.PN ---
Subjective - Date & Time of Evaluation Date of Evaluation: 05/08/18 Time of Evaluation: 08:58 - Subjective Subjective: Patient seen and examined with Dr Polly mills bedside Patient states feeling better, no pain at this time, chills, dizziness, no urinary symptoms Afebrile, VSS Objective - Vital Signs/Intake and Output Vital Signs (last 24 hours): Temp Pulse Resp BP Pulse Ox 97.6 F 65 19 123/76 100 05/08/18 07:58 05/08/18 07:58 05/08/18 07:58 05/08/18 07:58 05/08/18 07:58 - Medications Medications: Current Medications Enoxaparin Sodium (Lovenox) 40 mg SC DAILY [facility]; Protocol Last Admin: 05/07/18 08:31 Dose: 40 mg HCTZ/Losartan Potassium (Hyzaar 12.5 Mg-50 Mg) 1 tab PO DAILY [facility] Last Admin: 05/07/18 08:30 Dose: 1 tab Vancomycin HCl 1 gm/ Sodium (Chloride) 250 mls @ 166.667 mls/hr IVPB Q12 [facility]; Protocol Last Admin: 05/07/18 21:31 Dose: 166.667 mls/hr Piperacillin Sod/Tazobactam (Sod 3.375 gm/ Sodium Chloride) 100 mls @ 100 mls/hr IVPB Q6 [facility]; Protocol Last Admin: 05/08/18 04:02 Dose: 100 mls/hr Ibuprofen (Motrin Tab) 400 mg PO Q6H PRN PRN Reason: Pain, Mild (1-3) Insulin Human Regular (Humulin R) 0 units SC ACCU-CHECK [facility]; Protocol Last Admin: 05/07/18 23:00 Dose: Not Given Mupirocin (Bactroban Cream) 1 applic TOP BID [facility] Last Admin: 05/07/18 16:55 Dose: 1 applic Oxycodone/Acetaminophen (Percocet 5/325 Mg Tab) 1 tab PO Q4 PRN PRN Reason: Pain, moderate (4-7) Stop: 05/08/18 16:18 Pantoprazole Sodium (Protonix Ec Tab) 40 mg PO DAILY [facility] Last Admin: 05/07/18 14:57 Dose: 40 mg - Labs Labs: 05/08/18 05:50 05/08/18 05:50 PT 12.4 Seconds (9.8-13.1) 05/05/18 15:14 INR 1.1 05/05/18 15:14 APTT 38.3 Seconds (25.6-37.1) H 05/05/18 15:14 - Constitutional Appears: No Acute Distress - Head Exam Head Exam: NORMAL INSPECTION - Respiratory Exam Respiratory Exam: Clear to Ausculation Bilateral - Cardiovascular Exam Cardiovascular Exam: REGULAR RHYTHM, +S1, +S2 - GI/Abdominal Exam GI & Abdominal Exam: Soft, Normal Bowel Sounds. absent: Tenderness - Extremities Exam Additional comments: Dressing recently changed, clean and dry Assessment and Plan - Assessment and Plan (Free Text) Assessment: 53 y/o male patient with PMH of HTN and DM admitted for Left Hallux infected ulcer, Cellulitis r/o osteomyelitis. Plan: - afebrile, no leukocytosis - MRI reported: prominent signal abnormality seen within 1st distal phalanx consistent with acute OM - ID consulted, recommendations appreciated - wound cx: Staph aureus, strept mitis - on vanco and zosyn IV - Podiatry on board for wound care - PICC line placed yesterday - rest of plan as ordered
[2018-05-08] MEDS: Insulin Regular 100 units/ml SC SCH ×3 (09:20→16:59)
[2018-05-08] MEDS: Enoxaparin 40 mg Syringe SC SCH (09:21)
[2018-05-08] MEDS: Pantoprazole 40 mg EC Tab PO SCH (09:23)
[2018-05-08] MEDS: Mupirocin 2% Cream TOP SCH ×2 (09:23→17:00)
[2018-05-08] MEDS: HCTZ/Losartan 12.5/50 Tab PO SCH (09:24)
--- NOTE | 2018-05-08 10:03 | CP.PCM.PN ---
Subjective - Date & Time of Evaluation Date of Evaluation: 05/08/18 Time of Evaluation: 10:03 - Subjective Subjective: ID note- Pt. seen and examined with the nurse at bedside. Pt. was found to have OM as per MRI , however, as per podiatry he has opted not to get any amputation of the distal toe . Pt. states he prefers to try the 4-6 weeks of IV antibiotics first to see if that helps heal the infection. denies any fever or chills. states the toe is much less painful. Objective - Vital Signs/Intake and Output Vital Signs (last 24 hours): Temp Pulse Resp BP Pulse Ox 97.6 F 65 19 123/76 100 05/08/18 07:58 05/08/18 07:58 05/08/18 07:58 05/08/18 07:58 05/08/18 07:58 - Medications Medications: Current Medications Enoxaparin Sodium (Lovenox) 40 mg SC DAILY [facility]; Protocol Last Admin: 05/08/18 09:21 Dose: 40 mg HCTZ/Losartan Potassium (Hyzaar 12.5 Mg-50 Mg) 1 tab PO DAILY [facility] Last Admin: 05/08/18 09:24 Dose: 1 tab Vancomycin HCl 1 gm/ Sodium (Chloride) 250 mls @ 166.667 mls/hr IVPB Q12 [facility]; Protocol Last Admin: 05/08/18 09:23 Dose: 166.667 mls/hr Piperacillin Sod/Tazobactam (Sod 3.375 gm/ Sodium Chloride) 100 mls @ 100 mls/hr IVPB Q6 [facility]; Protocol Last Admin: 05/08/18 04:02 Dose: 100 mls/hr Ibuprofen (Motrin Tab) 400 mg PO Q6H PRN PRN Reason: Pain, Mild (1-3) Insulin Human Regular (Humulin R) 0 units SC ACCU-CHECK [facility]; Protocol Last Admin: 05/08/18 09:20 Dose: 2 units Mupirocin (Bactroban Cream) 1 applic TOP BID [facility] Last Admin: 05/08/18 09:23 Dose: 1 applic Oxycodone/Acetaminophen (Percocet 5/325 Mg Tab) 1 tab PO Q4 PRN PRN Reason: Pain, moderate (4-7) Stop: 05/08/18 16:18 Pantoprazole Sodium (Protonix Ec Tab) 40 mg PO DAILY [facility] Last Admin: 05/08/18 09:23 Dose: 40 mg - Labs Labs: - Additional Findings Additional findings: - Constitutional Appears: No Acute Distress - Head Exam Head Exam: ATRAUMATIC - Eye Exam Eye Exam: EOMI, PERRL - ENT Exam ENT Exam: Normal Oropharynx - Neck Exam Neck exam: Positive for: Full Rom - Respiratory Exam Respiratory Exam: Clear to Auscultation Bilateral, NORMAL BREATHING PATTERN - Cardiovascular Exam Cardiovascular Exam: RRR, +S1, +S2 - GI/Abdominal Exam GI & Abdominal Exam: Normal Bowel Sounds, Soft Additional comments: NT,ND - Extremities Exam Additional comments: left plantar hallux tip with round ulcer with scant yellow discharge edema and erythema in the surrounding region is much improved. has FROM of the hallux - Neurological Exam Neurological exam: Alert, Oriented x 3 Laboratory Results - last 72 hr 05/05/18 05/05/18 05/05/18 15:14 16:58 21:16 WBC RBC Hgb Hct MCV MCH MCHC RDW Plt Count MPV Neut % (Auto) Lymph % (Auto) Nash % (Auto) Eos % (Auto) Baso % (Auto) Neut # (Auto) Lymph # (Auto) Nash # (Auto) Eos # (Auto) Baso # (Auto) ESR Sodium Potassium 4.6 Chloride Carbon Dioxide Anion Gap 11 BUN Creatinine Est GFR ( Amer) Est GFR (Non-Af Amer) POC Glucose (mg/dL) 215 H 161 H Random Glucose Hemoglobin A1c Calcium Total Bilirubin AST 28 ALT 27 Alkaline Phosphatase 95 Troponin I < 0.0120 C-Reactive Protein Total Protein Albumin Globulin Albumin/Globulin Ratio 05/06/18 05/06/18 05/06/18 05:25 05:25 06:30 WBC 10.3 RBC 4.53 Hgb 13.8 Hct 40.3 MCV 89.1 MCH 30.5 MCHC 34.2 RDW 12.6 Plt Count 325 MPV 7.4 Neut % (Auto) 66.5 Lymph % (Auto) 21.9 Nash % (Auto) 9.2 Eos % (Auto) 2.0 Baso % (Auto) 0.4 Neut # (Auto) 6.9 Lymph # (Auto) 2.3 Nash # (Auto) 0.9 H Eos # (Auto) 0.2 Baso # (Auto) 0.0 ESR Sodium 141 Potassium 4.3 Chloride 108 H Carbon Dioxide 30 Anion Gap 7 L BUN 13 Creatinine 0.8 Est GFR ( Amer) > 60 Est GFR (Non-Af Amer) > 60 POC Glucose (mg/dL) 136 H Random Glucose 132 H Hemoglobin A1c Calcium 8.5 Total Bilirubin 0.5 AST 18 ALT 27 Alkaline Phosphatase 78 Troponin I C-Reactive Protein Total Protein 7.4 Albumin 3.4 L Globulin 3.9 Albumin/Globulin Ratio 0.9 L 05/06/18 05/06/18 05/06/18 10:48 11:24 11:24 WBC RBC Hgb Hct MCV MCH MCHC RDW Plt Count MPV Neut % (Auto) Lymph % (Auto) Nash % (Auto) Eos % (Auto) Baso % (Auto) Neut # (Auto) Lymph # (Auto) Nash # (Auto) Eos # (Auto) Baso # (Auto) ESR 48 H Sodium Potassium Chloride Carbon Dioxide Anion Gap BUN Creatinine Est GFR ( Amer) Est GFR (Non-Af Amer) POC Glucose (mg/dL) 259 H Random Glucose Hemoglobin A1c Calcium Total Bilirubin AST ALT Alkaline Phosphatase Troponin I C-Reactive Protein 39.90 H Total Protein Albumin Globulin Albumin/Globulin Ratio 05/06/18 05/06/18 05/07/18 16:03 22:20 04:48 WBC RBC Hgb Hct MCV MCH MCHC RDW Plt Count MPV Neut % (Auto) Lymph % (Auto) Nash % (Auto) Eos % (Auto) Baso % (Auto) Neut # (Auto) Lymph # (Auto) Nash # (Auto) Eos # (Auto) Baso # (Auto) ESR Sodium Potassium Chloride Carbon Dioxide Anion Gap BUN Creatinine Est GFR ( Amer) Est GFR (Non-Af Amer) POC Glucose (mg/dL) 192 H 181 H 136 H Random Glucose Hemoglobin A1c Calcium Total Bilirubin AST ALT Alkaline Phosphatase Troponin I C-Reactive Protein Total Protein Albumin Globulin Albumin/Globulin Ratio 05/07/18 05/07/18 05/07/18 05:15 05:15 11:30 WBC 9.9 RBC 4.83 Hgb 14.4 Hct 43.0 MCV 88.9 MCH 29.8 MCHC 33.5 RDW 12.6 Plt Count 330 MPV Neut % (Auto) Lymph % (Auto) Nash % (Auto) Eos % (Auto) Baso % (Auto) Neut # (Auto) Lymph # (Auto) Nash # (Auto) Eos # (Auto) Baso # (Auto) ESR Sodium 142 Potassium 4.3 Chloride 104 Carbon Dioxide 30 Anion Gap 12 BUN 15 Creatinine 0.9 Est GFR ( Amer) > 60 Est GFR (Non-Af Amer) > 60 POC Glucose (mg/dL) 234 H Random Glucose 139 H Hemoglobin A1c Calcium 8.7 Total Bilirubin AST ALT Alkaline Phosphatase Troponin I C-Reactive Protein Total Protein Albumin Globulin Albumin/Globulin Ratio 05/07/18 05/07/18 05/08/18 15:45 21:10 05:29 WBC RBC Hgb Hct MCV MCH MCHC RDW Plt Count MPV Neut % (Auto) Lymph % (Auto) Nash % (Auto) Eos % (Auto) Baso % (Auto) Neut # (Auto) Lymph # (Auto) Nash # (Auto) Eos # (Auto) Baso # (Auto) ESR Sodium Potassium Chloride Carbon Dioxide Anion Gap BUN Creatinine Est GFR ( Amer) Est GFR (Non-Af Amer) POC Glucose (mg/dL) 162 H 214 H 169 H Random Glucose Hemoglobin A1c Calcium Total Bilirubin AST ALT Alkaline Phosphatase Troponin I C-Reactive Protein Total Protein Albumin Globulin Albumin/Globulin Ratio 05/08/18 05/08/18 05/08/18 05:50 05:50 09:11 WBC 9.6 RBC 4.76 Hgb 14.5 Hct 42.0 MCV 88.3 MCH 30.4 MCHC 34.4 RDW 12.5 Plt Count 349 MPV Neut % (Auto) Lymph % (Auto) Nash % (Auto) Eos % (Auto) Baso % (Auto) Neut # (Auto) Lymph # (Auto) Nash # (Auto) Eos # (Auto) Baso # (Auto) ESR Sodium 140 Potassium 4.5 Chloride 104 Carbon Dioxide 31 H Anion Gap 10 BUN 16 Creatinine 0.8 Est GFR ( Amer) > 60 Est GFR (Non-Af Amer) > 60 POC Glucose (mg/dL) Random Glucose 174 H Hemoglobin A1c 11.4 H Calcium 9.0 Total Bilirubin AST ALT Alkaline Phosphatase Troponin I C-Reactive Protein Total Protein Albumin Globulin Albumin/Globulin Ratio 05/08/18 10:41 WBC RBC Hgb Hct MCV MCH MCHC RDW Plt Count MPV Neut % (Auto) Lymph % (Auto) Nash % (Auto) Eos % (Auto) Baso % (Auto) Neut # (Auto) Lymph # (Auto) Nash # (Auto) Eos # (Auto) Baso # (Auto) ESR Sodium Potassium Chloride Carbon Dioxide Anion Gap BUN Creatinine Est GFR ( Amer) Est GFR (Non-Af Amer) POC Glucose (mg/dL) 309 H Random Glucose Hemoglobin A1c Calcium Total Bilirubin AST ALT Alkaline Phosphatase Troponin I C-Reactive Protein Total Protein Albumin Globulin Albumin/Globulin Ratio Microbiology 05/05/18 15:14 Blood-Venous Blood Culture - Preliminary NO GROWTH AFTER 3 DAYS 05/05/18 15:32 Foot - Left Gram Stain - Final 05/05/18 15:32 Foot - Left Wound Culture - Final Staphylococcus Aureus Streptococcus Mitis Accession No. : [id number] Patient Name / ID : LILIANA [id number] / [id number] Exam Date : 05/06/2018 16:59:55 ( Approved ) Study Comment : Sex / Age : M / 53Y Creator : Chan Hinton MD Dictator : Chan Hinton MD Retail Area Manager : Company Dancer : Chan Hinton MD Approver2 : Report Date : 05/07/2018 13:38:07 My Comment : MRI left foot HISTORY: Ulcer. Evaluate for osteomyelitis. COMPARISON: None available. TECHNIQUE: Multi-echo multiplanar sequences were performed through the left forefoot without the use of intravenous contrast. FINDINGS: Ulceration noted at the level of the 1st distal phalanx. 1 centimeter heterogeneous collection at the site of the ulceration extending to the bone which may represent a phlegmon and/or abscess collection. Clinical correlation. Prominent signal abnormality seen within the 1st distal phalanx with decreased T1 signal and increased STIR signal consistent with an acute osteomyelitis. Mild nonspecific reactive edema seen at the head of the 1st proximal phalanx, nonspe cific; however, some developing and or early acute osteomyelitic changes cannot entirely be excluded. Clinical correlation. Some fraying with increased signal seen at the level of the Lisfranc ligament which may represent a strain and or partial tearing. Clinical correlation. Mild nonspecific reactive edema seen within the middle and lateral cuneiform bones as well as the proximal aspect of the navicular bone. Clinical correlation. Signal abnormality seen at the dorsal base of the 2nd metatarsal bone with focal decreased T1 signal and increased STIR signal measuring approximately 7 m illimeters suggestive for prominent osteochondral change. Clinical correlation. Degenerative changes noted at the dorsal aspect of the talonavicular joint space. Small localized fluid collections are seen related to the dorsum of the metatarsophalangeal articulations at the 1st and 2nd toes under each related extensor tendon which may represent some focalized bursitis. Clinical correlation. Extensive deep tissue edema of the foot. Impression: 1. Ulceration noted at the level of the 1st distal phalanx. 1 centimeter heterogeneous collection at the site of the ulceration extending to the bone which may represent a phlegmon and/or abscess collection. Clinical correlation. 2. Prominent signal abnormality seen within the 1st distal phalanx with decreased T1 signal and increased STIR signal consistent with an acute osteomyelitis. 3. Mild nonspecific reactive edema seen at the head of the 1st proximal phalanx, nonspecific; however, some developing and or early acute osteomyelitic changes cannot entirely be excluded. Clinical correlation. 4. Some fraying with increased signal seen at the level of the Lisfranc ligament which may represent a strain and or partial tearing. Clinical correlation. 5. Mild nonspecific reactive edema seen within the middle and lateral cuneiform bones as well as the proximal aspect of the navicular bone. Clinical correlation. 6. Signal abnormality seen at the dorsal base of the 2nd metatarsal bone with focal decreased T1 signal and increased STIR signal measuring approximately 7 millimeters suggestive for prominent osteochondral change. Clinical correlation. 7. Degenerative changes noted at the dorsal aspect of the talonavicular joint space. 8. Small localized fluid collections are seen related to the dorsum of the metatarsophalangeal articulations at the 1st and 2nd toes under each related extensor tendon which may represent some focalized bursitis. Clinical correlation. 9. Extensive deep tissue edema of the foot. These findings were preliminarily reported at 7:06 p.m. on 05/06/[address] Iam Rivera from [facility] rad. Assessment and Plan (1) Cellulitis Status: Acute (2) Osteomyelitis Status: Acute - Assessment and Plan (Free Text) Assessment: A/P- 53 year old male with DM Ii, HTN admitted withleft great toe tip nonhealing/infected ulcer. afebrile minimal leukocytosis has resolved. wound cx- MSSA and strep mitis both sens to vanco MRI report- OM of the toe plan- has completed 3 days of IV zosyn and vanco so far. advise to d/c zosyn. pt. is being d/c home as per podiatry today [facility] pt. does not want to have any surgical intervention at this time. he has picc line in right arm. advise 6 weeks of IV vancomycin 750 mg BID to treat this hallux OM. advise to monitor his vanco trough once a week and keep less than 15. advise to monitor his creatinine weekly as well. pt. also advised if he notices any change in his hearing to notify his PMD. pt. to f/u with podiatry closely as outpatient adn with his PMD. pt. also advised to f/u with me in office in 3 weeks. all labs and imaging and notes reviewed. pt. verbalizes full understanding of all above and agrees with above plan of care. all above d/w podiatry and CRUSHING MACHINE OPERATOR Kalie as well.
[2018-05-08 17:09] VITALS: BP 133/77; PULSE 58; RESP 18; TEMP 97.8; O2SAT 97
== END 2018-05-08 21:00 | disposition home or self-care (01) | DRG 540 ==
LOC: H.ER 13:22 → H.ERHOLD 15:34 → H.MEDSURG1 17:03
PROVIDERS: ADMIT Internal Medicine; ATTEND Internal Medicine
PROC: 3E0234Z Introduction of Serum, Toxoid and Vaccine into Muscle, Percutaneous Approach (ICD-10-PCS; 2018-05-06)
PROC: 02HV33Z Insertion of Infusion Device into Superior Vena Cava, Percutaneous Approach (ICD-10-PCS; principal; 2018-05-07)
PROC: B518YZA Fluoroscopy of Superior Vena Cava using Other Contrast, Guidance (ICD-10-PCS; 2018-05-07)
PROC: 3E04329 Introduction of Other Anti-infective into Central Vein, Percutaneous Approach (ICD-10-PCS; 2018-05-07)
DX: M86.172 Other acute osteomyelitis, left ankle and foot (principal); L03.116 Cellulitis of left lower limb; B95.61 Methicillin susceptible Staphylococcus aureus infection as the cause of diseases classified elsewhere; B95.4 Other streptococcus as the cause of diseases classified elsewhere; L97.529 Non-pressure chronic ulcer of other part of left foot with unspecified severity; E11.621 Type 2 diabetes mellitus with foot ulcer; E11.69 Type 2 diabetes mellitus with other specified complication; E78.5 Hyperlipidemia, unspecified; I10 Essential (primary) hypertension; E78.00 Pure hypercholesterolemia, unspecified; Z23 Encounter for immunization

== ENCOUNTER 2018-07-12 12:34 | Emergency (ER) | payer OTHER ==
[2018-07-12 12:34] VITALS: BMI 22.7
--- NOTE | 2018-07-12 12:54 | ED PDOC ---
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 Patient reports having a history of cerumen impaction which he usually gets debrided by ENT, but did not attempt to make an appointment due to the holidays, prompting ED visit. Patient reports taking no medication prior to arrival. Otherwise denies fever, dizziness, cough/SOB, throat pain, ear pain, changes in hearing, and headache. PMD: Sidney Garcia Past Medical History Reviewed: Historical Data, Nursing Documentation, Vital Signs - Medical History PMH: Diabetes, HTN, Hypercholesterolemia Denies: Chronic Kidney Disease - Surgical History Surgical History: No Surg Hx - Family History Family History: States: Unknown Family Hx - Social History Current smoker - smoking cessation education provided: No Alcohol: None Drugs: Denies - Home Medications Home Medications: Ambulatory Orders Medication Instructions Recorded RX: Glimepiride [amaRYL] 2 mg PO BID 05/05/18 RX: Levocetirizine Dihydrochloride 5 mg PO DAILY 05/05/18 [Xyzal] RX: Losartan/Hydrochlorothiazide 1 tab PO DAILY 05/05/18 [Hyzaar 100-12.5 Tablet] RX: Sitagliptin Phos/Metformin HCl 1 tab PO BID 05/05/18 [Janumet 50-1,000 mg Tablet] RX: Vancomycin [Vancomycin Inj] 1 gm IVPB Q12 30 Days vial 05/08/18 Carbamide Peroxide [Debrox] 6 drop AU BID #1 bottle 07/12/18 - Allergies Allergies/Adverse Reactions: Allergies Allergy/AdvReac Type Severity Reaction Status Date / Time No Known Allergies Allergy Verified 05/05/18 13:29 Review of Systems ROS Statement: Except As Marked, All Systems Reviewed And Found Negative Constitutional: Negative for: Fever ENT: Positive for: Nose Congestion, Other (bilateral ear pressure) Neurological: Negative for: Headache, Dizziness Physical Exam - Reviewed Nursing Documentation Reviewed: Yes Vital Signs Reviewed: Yes - Physical Exam Comments: GENERAL APPEARANCE: Patient is awake, alert, oriented x 3, in no acute distress. SKIN: Warm, dry; (-) cyanosis. ENMT: Canals : (+) bilateral partial cerumen impaction, visualized TMs: (-) bu lging and (-) erythema, (-)effusion, (-) perforation,(-) vesicles. Hearing intact. Frontal / maxillary sinuses : (-) tenderness. (-) TMJ tenderness. Pharynx: Clear; uvula midline (-) erythema, (-) exudate. Airway patent: (-) stridor. NECK: Supple, FROM (-) stiffness, (-) tenderness, (-) lymphadenopathy. LUNGS: clear to auscultation bilaterally, (-) wheezing, (-) rhonchi, (-) rales. CARDIAC: RRR Medical Decision Making Medical Decision Making: Initial Impression: partial cerumen impaction Time: 1305 Initial Plan: --Patient stable for discharge and outpatient follow up with ENT specialist. Advised to use prescribed Debrox for relief of symptoms. Based on history, exam and diagnostic results, plan will be for outpatient follow up with ENT/PMD. Patient instructed to follow-up with pmd / referral provided / the clinic in 1- 2 days without fail. Advised to take medication as prescribed. Return to the emergency room at any time for any new or worsening symptoms. Patient states he fully agrees with and understands discharge instructions. States that he agrees with the plan and disposition. Verbalized and repeated discharge instructions and plan. I have given the patient opportunity to ask any additional questions. Scribe Attestation: Documented by Ilda Pappas, acting as a scribe for Tierra Ramos PA-C. Provider Scribe Attestation: All medical record entries made by the Scribe were at my direction and personally dictated by me. I have reviewed the chart and agree that the record accurately reflects my personal performance of the history, physical exam, medical decision making, and the department course for this patient. I have also personally directed, reviewed, and agree with the discharge instructions and disposition. Disposition - Clinical Impression Clinical Impression: Impacted cerumen of both ears - Patient ED Disposition Is Patient to be Admitted: No Counseled Patient/Family Regarding: Studies Performed, Diagnosis, Need For Followup, Rx Given - Disposition Referrals: Sidney Garcia MD [Primary Care Provider] - Antony King MD [Staff Provider] - Disposition: Routine/Home Disposition Time: 13:45 Condition: STABLE Additional Instructions: La atencin mdica de emergencia que recibi hoy se dirigi a courtney sntomas agudos. Si le recetaron algn medicamento, llnelo y tmelo segn las indicaciones. Los sntomas pueden tardar varios gutierres en resolverse. Regrese al Departamento de Emergencias si courtney sntomas empeoran, no mejoran o si tiene otros problemas. Comunquese con bowman mdico dentro de 2 gutierres para mitch nueva evaluacin y gena un seguimiento o llame a radha de los mdicos / clnicas a los que jang sido referido y que figuran en el formulario de Informacin de visita al paciente que se incluye en bowman paquete de karsten. Lleve todos los documentos que le entregaron al momento del karsten junto con todos los medicamentos que est tomando para bowman visita de seguimiento. Nuestro tratamiento no puede reemplazar la atencin mdica continua por parte de un proveedor de atencin primaria (PCP) fuera del departamento de emergencias. Prescriptions: Carbamide Peroxide [Debrox] 6 drop AU BID #1 bottle Instructions: Ear Wax Impaction Forms: [facility] (Persian) Print Language: BELARUSIAN - POA Present On Arrival: None
[2018-07-12 14:05] VITALS: BP 146/99; PULSE 64; RESP 20; TEMP 98.8; O2SAT 99
== END 2018-07-12 14:37 | disposition home or self-care (01) ==
LOC: H.ER 12:34 → SUPCPDRO 12:34 → H.ER 14:37
DX: H61.23 Impacted cerumen, bilateral (principal); E11.9 Type 2 diabetes mellitus without complications; Z79.84 Long term (current) use of oral hypoglycemic drugs